=== PATIENT | female | born 1965 | race Caucasian/White ===

== ENCOUNTER 2017-09-06 13:59 | Outpatient (CLI) | payer OTHER ==
--- NOTE | 2017-09-06 18:30 | RAD ---
CHEST TWO VIEWS 09/06/17 Comparison is made with the 12/05/13 study. The heart size is unchanged. There is no vascular congestion, edema or pleural effusion. No focal inf iltrate was noted. Haziness at the cardiac apex is probably a fat pad. The trachea is midline. Right paratracheal prominence is probably due to vessels and the patient being turned slightly. The lungs a re mildly hyperexpanded. IMPRESSION: No acute thoracic findings. POS: HOME
== END 2017-09-06 14:00 | disposition home or self-care (01) ==
LOC: BURRAD 13:59
PROVIDERS: ATTEND Physician Assistant
DX: R04.2 Hemoptysis (principal)
CPT/HCPCS: 71020

== ENCOUNTER 2021-07-25 13:29 | Emergency (ER) | payer SELFPAY ==
[2021-07-25] MEDS ORDERED: Iopamidol 370 76% 100 ML VIAL IV ONE (13:30)
[2021-07-25] MEDS ORDERED: Enoxaparin Sodium 100 MG/ML SYRINGE ONE (13:58)
[2021-07-25] MEDS ORDERED: Aspirin Chewable 81 MG TAB ONE (13:58)
[2021-07-25] MEDS ORDERED: Diltiazem 125 MG/25 ML ONE (13:58)
[2021-07-25 14:03] LABS: #Basophils 0.1 thou/uL (0.0-0.2); #Lymphocytes 2.1 thou/uL (1.20-3.40); #Monocytes 0.8 thou/uL (0.11-0.59); #Neutrophils 2.6 thou/uL (1.40-6.50); %Basophils 1.9 % (0.0-1.0); %Eosinophils 0.1 % (0.0-10.0); %Lymphocytes 37.3 % (21.0-51.0); %Monocytes 14.1 % (0.0-10.0); %Neutrophils 46.7 % (42.0-75.0); Hemoglobin 15.3 g/dL (12.0-16.0); Mean Corpuscular HGB CONC 33.4 g/dL (32.0-36.0); Mean Corpuscular Hemoglobin 28.9 pg (27.0-31.0); Mean Corpuscular Volume 86.7 fL (78.0-98.0); Mean Platelet Volume 6.7 fL (7.4-10.4); Platelet Count 436 thou/uL (130-400); RBC Distribution Width 13.1 % (11.5-14.5); Red Blood Cell (RBC) Count 5.28 mill/uL (4.20-5.40); White Blood Cell (WBC) Count 5.6 thou/uL (4.8-10.8)
[2021-07-25 14:20] LABS: ALT (SGPT) 23 U/L (8-55); AST (SGOT) 21 U/L (5-34); Albumin 4.4 g/dL (3.5-5.0); Alkaline Phosphatase 87 U/L (40-110); Anion Gap 19 mmol/L (10-20); BUN (Urea Nitrogen) 8 mg/dL (9.8-20.1); Bilirubin, Total 0.4 mg/dL (0.2-1.2); CK (CPK) 56 U/L (29-168); Calc. Creatinine Clearance 0 mL/min (70-130); Calcium 9.2 mg/dL (7.8-10.44); Carbon Dioxide 20 mmol/L (22-29); Chloride 102 mmol/L (98-107); Globulin 3.2 g/dL (2.4-3.5); Glucose 156 mg/dL (70-105); Magnesium 1.6 mg/dL (1.6-2.6); Potassium 3.2 mmol/L (3.5-5.1); Protein, Total 7.6 g/dL (6.0-8.3); Sodium 138 mmol/L (136-145)
[2021-07-25 16:08] LABS: Bilirubin Negative (Negative); Blood, Urine Small (Negative); Clarity Clear (Clear); Glucose, Urine (Dipstick) Negative (Negative); Ketone, Urine Negative (Negative); Leukocyte Negative (Negative); Nitrite Negative (Negative); Protein, Urine (Dipstick) Negative (Neg-Trace); Urobilinogen 0.2 mg/dL (Less than 2); pH, Urine 7.5 (5.0-9.0)
[2021-07-25 16:14] LABS: Bacteria/HPF None Seen HPF (None Seen); Squamous Epithelial 0-3 HPF (0-3); WBC/HPF 0-3 HPF (0-3)
[2021-07-25 16:56] LABS: SARS-CoV-2 NAA Rapid Test DETECTED (NotDetected)
== END 2021-07-25 18:20 | disposition short-term general hospital (02) ==
LOC: BURERS 13:29
DX: U07.1 COVID-19 (principal); R00.0 Tachycardia, unspecified; I10 Essential (primary) hypertension; E11.9 Type 2 diabetes mellitus without complications; E78.5 Hyperlipidemia, unspecified
CPT/HCPCS: 71045; 71275; 80053; 81003; 81015; 82550; 83735; 84443; 84484; 85025; 93005; 96365; 96366; 96372; 96376; J1650; Q9967; U0002